=== PATIENT | male | born 1955 | race Caucasian/White ===

== ENCOUNTER 2019-09-07 14:21 | Emergency (ER) | payer OTHER ==
[~2019-09-07] VITALS: Ht 152.4 cm; Wt 82.6 kg
[2019-09-07] MEDS ORDERED: [UNRECOGNIZED DRUG - OTHER] (14:39)
[2019-09-07] MEDS ORDERED: METF-494 PO (14:39)
[2019-09-07] MEDS ORDERED: GABA800T11 PO (14:39)
[2019-09-07] MEDS ORDERED: OXYC5CAP18 PO (14:39)
[2019-09-07] MEDS ORDERED: LISI-607 PO (14:39)
--- NOTE | 2019-09-07 14:58 | NUR ---
Received patient for discharge, AOx4, respiration:easy. Patient discharged to home in stable conditon. Written and verbal after care instructions given. Patient verbalizes understanding & compliance of instructions.
== END 2019-09-07 14:58 | disposition home or self-care (01) ==
LOC: ER 14:21
DX: G89.29 Other chronic pain (principal); M79.10 Myalgia, unspecified site; E11.9 Type 2 diabetes mellitus without complications; F17.290 Nicotine dependence, other tobacco product, uncomplicated; Z79.891 Long term (current) use of opiate analgesic; Z79.899 Other long term (current) drug therapy

== ENCOUNTER 2019-10-13 15:25 | Emergency (ER) | payer OTHER ==
[~2019-10-13] VITALS: Ht 180.3 cm; Wt 83.9 kg
[~2019-10-13 15:25] MED LIST: GABA800T11 PO; LISI-607 PO; METF-494 PO; OXYC5CAP18 PO; [UNRECOGNIZED DRUG - OTHER]
--- NOTE | 2019-10-13 15:47 | NUR ---
PT NOT IN WAITING ROOM WHEN CALLED FOR TRIAGE.
[2019-10-13 16:41] VITALS: BP 153/79
--- NOTE | 2019-10-13 16:42 | NUR ---
Patient discharged to home in stable conditon. Written and verbal after care instructions given. Patient verbalizes understanding of instructions.
== END 2019-10-13 16:42 | disposition home or self-care (01) ==
LOC: ER 15:25
DX: G89.29 Other chronic pain (principal); M54.5 Low back pain; E11.9 Type 2 diabetes mellitus without complications; F17.200 Nicotine dependence, unspecified, uncomplicated; Z79.899 Other long term (current) drug therapy
CPT/HCPCS: A4663

== ENCOUNTER 2019-11-14 07:21 | Emergency (ER) | payer OTHER ==
[~2019-11-14] VITALS: Ht 172.7 cm; Wt 82.1 kg
--- NOTE | 2019-11-14 07:44 | NUR ---
Dr pink at the bedside for MSE.
[2019-11-14 08:14] VITALS: BP 119/84
--- NOTE | 2019-11-14 08:14 | NUR ---
Patient discharged to home in stable conditon. Written and verbal after care instructions given. Patient verbalizes understanding of instructions.
== END 2019-11-14 08:15 | disposition home or self-care (01) ==
LOC: ER 07:21
DX: M54.5 Low back pain (principal); G89.29 Other chronic pain; E11.9 Type 2 diabetes mellitus without complications; F17.200 Nicotine dependence, unspecified, uncomplicated; Z76.0 Encounter for issue of repeat prescription; Z79.899 Other long term (current) drug therapy
CPT/HCPCS: A4663

== ENCOUNTER 2020-05-09 17:08 | Emergency (ER) | payer OTHER ==
[~2020-05-09] VITALS: Ht 172.7 cm; Wt 77.1 kg
[2020-05-09 17:35] VITALS: BP 139/71
--- NOTE | 2020-05-09 17:35 | NUR ---
PT WAS D/C'd TO HOME. D/C INSTRUCTIONS GIVEN TO THE PT BY DR BAÑUELOS.
== END 2020-05-09 17:36 | disposition home or self-care (01) ==
LOC: ER 17:11
DX: Z76.0 Encounter for issue of repeat prescription (principal); M54.42 Lumbago with sciatica, left side
CPT/HCPCS: A4663

== ENCOUNTER 2021-01-07 23:36 | Emergency (ER) | payer OTHER ==
[~2021-01-07] VITALS: Ht 172.7 cm; Wt 77.1 kg
[~2021-01-07 23:36] MED LIST changes: -LISI-607 PO; +LISI-782 PO
--- NOTE | 2021-01-08 | NUR ---
MD Kuhn in room to do MSE.
[2021-01-08] MEDS ORDERED: AMOX500T2 PO (00:27)
[2021-01-08] MEDS ORDERED: OFLO5DRO5 RIGHT EAR (00:27)
[2021-01-08 00:40] VITALS: BP 168/99
--- NOTE | 2021-01-08 00:40 | NUR ---
Patient discharged to home in stable condition. Written and verbal after care instructions given. Patient verbalizes understanding of instructions. Stressed follow up or return to ER for worsening s/s. Patient ambulates with steady gait, received electronic Rx, V/S stable, patient left with all personal belongings.
== END 2021-01-08 00:40 | disposition home or self-care (01) ==
LOC: ER 23:38
DX: H60.91 Unspecified otitis externa, right ear (principal); E11.9 Type 2 diabetes mellitus without complications; Z79.84 Long term (current) use of oral hypoglycemic drugs; M54.42 Lumbago with sciatica, left side; Z79.899 Other long term (current) drug therapy
CPT/HCPCS: A4663